=== PATIENT | female | born 1985 | race Hispanic/Latino ===

== ENCOUNTER 2020-12-24 21:06 | Emergency (ER) | payer OTHER ==
[~2020-12-24] VITALS: Ht 165.1 cm; Wt 60.0 kg
--- OUTSIDE RECORDS SUMMARY | 2020-12-24 21:16 | CCD ---
Author Author [facility] Organization [facility] Address Unknown Phone Unavailable Care Team Providers Care Actuary Name Role Phone Carine GOOD MD Unavailable Unavailable Carine GOOD MD Unavailable Unavailable Carine GOOD MD Unavailable Unavailable Carine GOOD MD Unavailable Unavailable Carine GOOD MD Unavailable Unavailable Carine GOOD MD Unavailable Unavailable Carine GOOD MD Unavailable Unavailable Carine GOOD MD Unavailable Unavailable Carine GOOD MD Unavailable Unavailable Carine GOOD MD Unavailable Unavailable Carine GOOD MD Unavailable Unavailable Carine GOOD MD Unavailable Unavailable Carine GOOD MD Unavailable Unavailable Carine GOOD MD Unavailable Unavailable Carine GOOD MD Unavailable Unavailable Carine GOOD MD Unavailable Unavailable Carine GOOD MD Unavailable Unavailable Carine GOOD MD Unavailable Unavailable Carine GOOD MD Unavailable Unavailable Carine GOOD MD Unavailable Unavailable Carine GOOD MD Unavailable Unavailable Carine GOOD MD Unavailable Unavailable Carine GOOD MD Unavailable Unavailable Carine GOOD MD Unavailable Unavailable Feola, T Tahira PA Unavailable Unavailable Feola, T Tahira PA Unavailable Unavailable Feola, T Tahira PA Unavailable Unavailable Feola, T Tahira PA Unavailable Unavailable Feola, T Tahira PA Unavailable Unavailable Feola, T Tahira PA Unavailable Unavailable Feola, T Tahira PA Unavailable Unavailable Feola, T Tahira PA Unavailable Unavailable Feola, T Tahira PA Unavailable Unavailable Feola, T Tahira PA Unavailable Unavailable Feola, T Tahira PA Unavailable Unavailable Feola, T Tahira PA Unavailable Unavailable Feola, T Tahira PA Unavailable Unavailable Feola, T Tahira PA Unavailable Unavailable Feola, T Tahira PA Unavailable Unavailable Feola, T Tahira PA Unavailable Unavailable Feola, T Tahira PA Unavailable Unavailable Feola, T Tahira PA Unavailable Unavailable Feola, T Tahira PA Unavailable Unavailable Feola, T Tahira PA Unavailable Unavailable Feola, T Tahira PA Unavailable Unavailable Feola, T Tahira PA Unavailable Unavailable Feola, T Tahira PA Unavailable Unavailable Feola, T Tahira PA Unavailable Unavailable Feola, T Tahira PA Unavailable Unavailable Feola, T Tahira PA Unavailable Unavailable Feola, T Tahira PA Unavailable Unavailable Feola, T Tahira PA Unavailable Unavailable Feola, T Tahira PA Unavailable Unavailable Feola, T Tahira PA Unavailable Unavailable Feola, T Tahira PA Unavailable Unavailable Feola, T Tahira PA Unavailable Unavailable Feola, T Tahira PA Unavailable Unavailable Feola, T Tahira PA Unavailable Unavailable Feola, T Tahira PA Unavailable Unavailable Feola, T Tahira PA Unavailable Unavailable Feola, T Tahira PA Unavailable Unavailable Feola, T Tahira PA Unavailable Unavailable Feola, T Tahira PA Unavailable Unavailable Feola, T Tahira PA Unavailable Unavailable Feola, T Tahira PA Unavailable Unavailable SANTAMARIA, G EDWARD RPA Unavailable Unavailable SANTAMARIA, G EDWARD RPA Unavailable Unavailable SANTAMARIA, G EDWARD RPA Unavailable Unavailable SANTAMARIA, G EDWARD RPA Unavailable Unavailable SANTAMARIA, G EDWARD RPA Unavailable Unavailable SANTAMARIA, G EDWARD RPA Unavailable Unavailable SANTAMARIA, G EDWARD RPA Unavailable Unavailable SANTAMARIA, G EDWARD RPA Unavailable Unavailable SANTAMARIA, G EDWARD RPA Unavailable Unavailable SANTAMARIA, G EDWARD RPA Unavailable Unavailable SANTAMARIA, G EDWARD RPA Unavailable Unavailable SANTAMARIA, G EDWARD RPA Unavailable Unavailable SANTAMARIA, G EDWARD RPA Unavailable Unavailable SANTAMARIA, G EDWARD RPA Unavailable Unavailable SANTAMARIA, G EDWARD RPA Unavailable Unavailable SANTAMARIA, G EDWARD RPA Unavailable Unavailable SANTAMARIA, G EDWARD RPA Unavailable Unavailable SANTAMARIA, G EDWARD RPA Unavailable Unavailable SANTAMARIA, G EDWARD RPA Unavailable Unavailable SANTAMARIA, G EDWARD RPA Unavailable Unavailable SANTAMARIA, G EDWARD RPA Unavailable Unavailable SANTAMARIA, G EDWARD RPA Unavailable Unavailable SANTAMARIA, G EDWARD RPA Unavailable Unavailable SANTAMARIA, G EDWARD RPA Unavailable Unavailable SANTAMARIA, G EDWARD RPA Unavailable Unavailable SANTAMARIA, G EDWARD RPA Unavailable Unavailable SANTAMARIA, G EDWARD RPA Unavailable Unavailable SANTAMARIA, G EDWARD RPA Unavailable Unavailable SANTAMARIA, G EDWARD RPA Unavailable Unavailable SANTAMARIA, G EDWARD RPA Unavailable Unavailable SANTAMARIA, G EDWARD RPA Unavailable Unavailable SANTAMARIA, G EDWARD RPA Unavailable Unavailable SANTAMARIA, G EDWARD RPA Unavailable Unavailable SANTAMARIA, G EDWARD RPA Unavailable Unavailable SANTAMARIA, G EDWARD RPA Unavailable Unavailable SANTAMARIA, G EDWARD RPA Unavailable Unavailable SANTAMARIA, G EDWARD RPA Unavailable Unavailable Re-disclosure Warning The records that you are about to access may contain information from federally-assisted alcohol or drug abuse programs. If such information is present, then the following federally mandated warning applies: This information has been disclosed to you from records protected by federal confidentiality rules (42 CFR part 2). The federal rules prohibit you from making any further disclosure of this information unless further disclosure is expressly permitted by the written consent of the person to whom it pertains or as otherwise permitted by 42 CFR part 2. A general authorization for the release of medical or other information is NOT sufficient for this purpose. The Federal rules restrict any use of the information to criminally investigate or prosecute any alcohol or drug abuse patient.The records that you are about to access may contain highly sensitive health information, the redisclosure of which is protected by Article 27-F of the [facility] Public Health law. If you continue you may have access to information: Regarding HIV / AIDS; Provided by facilities licensed or operated by the [facility] Office of Mental Health; or Provided by the [facility] Office for People With Developmental Disabilities. If such information is present, then the following [facility] mandated warning applies: This information has been disclosed to you from confidential records which are protected by state law. State law prohibits you from making any further disclosure of this information without the specific written consent of the person to whom it pertains, or as otherwise permitted by law. Any unauthorized further disclosure in violation of state law may result in a fine or [place] [facility] sentence or both. A general authorization for the release of medical or other information is NOT sufficient authorization for further disc losure. Encounters Encounter Providers Location Date Indications Data Source(s ) Outpatient Attender: Tahira RIVERA 021 12:39:21 PM EDT - 10/17/2020 12:48:44 PM EDT [facility] ([facility] ) Outpatient Attender: JOAN SANTAMARIA RPA 10/15 11:49:40 AM EDT - 10/15/2020 12:26:16 PM EDT [facility] Outpatient 10/14/2020 10:54:14 AM EDT [facility] ([facility]) Outpatient Attender: JADIEL GOOD MD 10/10 04:24:40 PM EDT - 10/10/2020 04:51:30 PM EDT [facility] ([facility] ) Outpatient Attender: JOAN SANTAMARIA RPA 10/10 10:54:35 AM EDT - 10/10/2020 12:07:03 PM EDT [facility] ([facility] ) Immunizations Vaccine Date Status Description Data Source(s) COVID-19 VACCINE Pfizer 10/14/2020 12:00:00 AM EDT completed [facility] Vaccine Series Complete: YESThis Data wa s Submitted to [facility]. COVID-19 VACCINE Pfizer 09/22/2020 12:00:00 AM EDT completed [facility] Vaccine Series Complete: NOThis Data was Submitted to [facility]. Medications No Information Insurance Providers Payer name Policy type / Coverage type Policy ID Covered constitution party ID Covered constitution party's relationship to hernandez Policy Hernandez Plan Information [facility] emp [id number] Employee [id number] Managed Care [facility] Community Plan P UNAVAILABLE S UNAVAILABLE [employer] S [id number] S [id number] [id number] Managed Care Community [facility] P UNAVAILABLE S UNAVAILABLE [employer] BCYO S [id number] S [id number] [facility] S [id number] S [id number] [employer] WC P [id number] S [id number] [employer] [id number] SP [id number] OTHER WORKERS COMPENSATION [id number] SP [id number] [employer] [id number] SP [id number] O BLUE [id number] SP [id number] [facility] [id number] SP [id number] Problems, Conditions, and Diagnoses No Information Surgeries/Procedures No Information Results No Information Social History No Information
[2020-12-24] MEDS ORDERED: IBUP200C29 PO (21:22)
[2020-12-25 00:10] VITALS: BP 110/67
[2020-12-25] MEDS ORDERED: NS 1,000 ML IV ONE (01:30)
[2020-12-25] MEDS ORDERED: KETOROLAC 30 MG/ML 1ML VIAL IV ONE (01:30)
[2020-12-25] MEDS ORDERED: ISOVUE-370 76% 100ML VIAL As Ordered ONE (01:34)
[2020-12-25] MEDS: ALBUTEROL 90 MCG/ACT 8GM HFA INHALER INH SCH ×3 (01:45→02:10)
[2020-12-25 02:01] LABS: VENOUS HCO3 23.4 MEQ/L (23.0-27.0); VENOUS O2 SATURATION 47.8 % (60.0-80.0); VENOUS PARTIAL PRESSURE CO2 42.2 mmHg (38.0-50.0); VENOUS PARTIAL PRESSURE O2 23.9 mmHg (30.0-50.0); VENOUS PH 7.362 UNITS (7.330-7.430); VENOUS STANDARD HCO3 21.7 MEQ/L; VENOUS TOTAL CO2 24.7 MEQ/L (24.0-28.0)
[2020-12-25 02:12] LABS: BASO % 0.3 % (0.0-1.0); EOS % 0.1 % (0.0-3.0); HEMATOCRIT 41.5 % (36.0-47.0); HEMOGLOBIN 13.4 g/dl (12.0-15.5); LYMPH % 14.8 % (24.0-44.0); MEAN CORPUSCULAR HEMOGLOBIN 30.3 pg (27.0-33.0); MEAN CORPUSCULAR HGB CONC 32.3 g/dl (32.0-36.5); MEAN CORPUSCULAR VOLUME 93.9 fl (80.0-96.0); MONO # 0.5 10^3/uL (0.0-0.8); MONO % 7.8 % (2.0-8.0); NEUTROPHILS # 5.3 10^3/uL (1.5-8.5); NEUTROPHILS % 76.7 % (36.0-66.0); PLATELET COUNT, AUTOMATED 218 10^3/uL (150-450); RED BLOOD COUNT 4.42 10^6/uL (4.00-5.40)
--- NOTE | 2020-12-25 03:32 | REPVR ---
PROCEDURE INFORMATION: Exam: CTA Chest with Contrast Exam date and time: 12/25/20 (2:22am) Age: 34 years old Clinical indication: SOB. Covid (+). Pleuritic chest pain. TECHNIQUE: Imaging protocol: Computed tomographic angiography of the chest with contrast 3D rendering (Not supervised by radiologist): MIP and/or 3D reconstructed images were created by the technologist. Radiation optimization: All CT scans at this facility use at least one of these dose optimization techniques: automated exposure control; mA and/or kV adjustment per patient size (includes targeted exams where dose is matched to clinical indication); or iterative reconstruction. Contrast material: Iso Contrast volume: 75 ml Contrast route: IV COMPARISON: No relevant prior studies available FINDINGS: Pulmonary arteries: Normal. No pulmonary emboli. Aorta: Unremarkable. No aortic aneurysm. No aortic dissection. Lungs: Unremarkable. No consolidation. No masses. Pleural spaces: Unremarkable. No pneumothorax. No pleural effusions. Heart: Unremarkable. No cardiomegaly. No pericardial effusion. Lymph nodes: Unremarkable. No enlarged lymph nodes. Bones/joints: Unremarkable. No acute fracture. Soft tissues: Unremarkable. Upper abdomen: S/P cholecystectomy. IMPRESSION: No acute findings. No filling defects suspicious for pulmonary emboli are seen. There is no CT evidence of aortic dissection nor leakage. No aortic aneurysm is appreciated. Electronically signed by: Jalyn Mayo On 12/25/2020 03:31:57 AM
--- OUTSIDE RECORDS SUMMARY | 2020-12-25 05:21 | CCD ---
Author Author [facility] Organization [facility] Address Unknown Phone Unavailable Care Team Providers Care Reed Cleaner Name Role Phone Carine GOOD MD Unavailable [...] is protected by Article 27-F of the [facility] Public Health law. If you continue you may have access to information: Regarding HIV / AIDS; Provided by facilities licensed or operated by the [facility] Office of Mental Health; or Provided by the [facility] Office for People With Developmental Disabilities. If such information is present, then the following [facility] mandated warning applies: This information has [...] law may result in a fine or retirement sentence or both. A general authorization for the release of medical or other information is NOT sufficient authorization for further disc losure. Encounters Encounter Providers Location Date Indications Data Source(s ) Outpatient Attender: Tahira RIVERA 021 12:39:21 PM EDT - 10/17/2020 12:48:44 PM EDT [facility] Outpatient Attender: JOAN SANTAMARIA RPA 10/15 11:49:40 AM EDT - 10/15/2020 12:26:16 PM EDT [facility] ([facility] ) Outpatient 10/14/2020 10:54:14 AM EDT [facility] ([facility]) Outpatient Attender: JADIEL GOOD MD 10/10 04:24:40 PM EDT - 10/10/2020 04:51:30 PM EDT [facility] ([facility] ) Outpatient Attender: JOAN SANTAMARIA RPA 10/10 10:54:35 AM EDT - 10/10/2020 12:07:03 PM EDT [facility] ([facility] ) Immunizations Vaccine Date Status Description Data Source(s) COVID-19 VACCINE [employer] 10/14/2020 12:00:00 AM EDT completed [facility] Vaccine Series Complete: YESThis Data wa s Submitted to [facility]. COVID-19 VACCINE Pfizer 09/22/2020 12:00:00 AM EDT completed [facility] Vaccine Series Complete: NOThis Data was Submitted to [facility]. Medications No Information Insurance Providers Payer name Policy type / Coverage type Policy ID Covered green party ID Covered green party's relationship to hernandez Policy Hernandez Plan Information [facility] emp [id number] Employee [id number] [facility] Care [facility] Community Plan P UNAVAILABLE S UNAVAILABLE [employer] S [id number] S [id number] [id number] Managed Care Community [facility] P UNAVAILABLE S UNAVAILABLE [employer] BCYO S [id number] S [id number] [id number] Blue [employer] Blue Shield S [id number] S [id number] [employer] WC P [id number] S [id number] [employer] [id number] SP [id number] OTHER WORKERS COMPENSATION [id number] SP [id number] [employer] [id number] SP [id number] HMO BLUE [id number] SP [id number] [facility] [id number] Problems, Conditions, and Diagnoses No Information Surgeries/Procedures No Information Results No Information Social History No Information
== END 2020-12-25 05:47 | disposition home or self-care (01) ==
LOC: M ED 21:06
DX: U07.1 COVID-19 (principal); R07.9 Chest pain, unspecified; R06.02 Shortness of breath; F17.200 Nicotine dependence, unspecified, uncomplicated
CPT/HCPCS: 71275; 80047; 82803; 84702; 85025; 94640; 96361; 96374; 99284; J1885; Q9967

== ENCOUNTER 2022-02-09 15:02 | Emergency (ER) | payer OTHER ==
[~2022-02-09] VITALS: Ht 165.1 cm; Wt 54.3 kg
[~2022-02-09 15:02] MED LIST: IBUP200C29 PO
[2022-02-09 15:03] VITALS: BP 122/71
[2022-02-10] MEDS ORDERED: CIPR7.5D5 OTIC (13:11)
== END 2022-02-09 19:28 | disposition left against medical advice (07) ==
LOC: M ED 15:02
DX: Z53.21 Procedure and treatment not carried out due to patient leaving prior to being seen by health care provider (principal)

== ENCOUNTER 2022-02-10 08:48 | Emergency (ER) | payer OTHER ==
[~2022-02-10] VITALS: Ht 165.1 cm; Wt 53.4 kg
[2022-02-10 13:00] VITALS: BP 124/73
[2022-02-10] MEDS ORDERED: CIPR7.5D5 OTIC (13:11)
== END 2022-02-10 13:43 | disposition home or self-care (01) ==
LOC: M ED 08:48
DX: H92.01 Otalgia, right ear (principal); H92.21 Otorrhagia, right ear; F17.200 Nicotine dependence, unspecified, uncomplicated

== ENCOUNTER 2022-06-24 14:21 | Emergency (ER) | payer OTHER ==
[~2022-06-24] VITALS: Ht 165.1 cm; Wt 54.7 kg
[~2022-06-24 14:21] MED LIST changes: +CIPR7.5D5 OTIC
[2022-06-24 14:22] VITALS: BP 122/77
[2022-06-24] MEDS ORDERED: MEDR150I12 (14:27)
[2022-06-24] MEDS ORDERED: AMOX500C PO (16:59)
[2022-06-24] MEDS ORDERED: IBUP-1022 PO (16:59)
== END 2022-06-24 17:06 | disposition home or self-care (01) ==
LOC: M ED 14:21
DX: K02.9 Dental caries, unspecified (principal); M26.621 Arthralgia of right temporomandibular joint; F17.200 Nicotine dependence, unspecified, uncomplicated

== ENCOUNTER → 2023-03-28 | Outpatient (REF) | payer OTHER ==
[~2023-03-28] MED LIST changes: +AMOX500C PO; +IBUP-1022 PO; +MEDR150I12
[2023-03-28 17:30] LABS: BASO % 0.3 % (0.0-1.0); EOS # 0.1 10^3/uL (0.0-0.5); HEMATOCRIT 40.9 % (36.0-47.0); HEMOGLOBIN 13.7 g/dl (12.0-15.5); LYMPH % 29.3 % (24.0-44.0); MEAN CORPUSCULAR HEMOGLOBIN 30.7 pg (27.0-33.0); MEAN CORPUSCULAR HGB CONC 33.5 g/dl (32.0-36.5); MEAN CORPUSCULAR VOLUME 91.7 fl (80.0-96.0); MONO # 0.5 10^3/uL (0.0-0.8); MONO % 7.8 % (2.0-8.0); NEUTROPHILS # 4.2 10^3/uL (1.5-8.5); NEUTROPHILS % 60.3 % (36.0-66.0); PLATELET COUNT, AUTOMATED 268 10^3/uL (150-450); RED BLOOD COUNT 4.46 10^6/uL (4.00-5.40); WHITE BLOOD COUNT 6.9 10^3/uL (4.0-10.0)
[2023-03-28 17:42] LABS: CHOLESTEROL LEVEL 139 MG/DL (<200); HDL CHOLESTEROL 33.9 MG/DL (>40); LDL CHOLESTEROL 90.1 MG/DL (<100); NON-HDL-C 105.1 MG/DL; TRIGLYCERIDES LEVEL 75 MG/DL (<150)
[2023-03-28 17:43] LABS: THYROID STIMULATING HORMONE 1.488 uIU/ML (0.55-4.78); TOTAL 25(OH) VITAMIN D 9.1 NG/ML (20.0-100.0)
== END ==
LOC: M LAB REF 16:33
PROVIDERS: ATTEND Nurse Practitioner Family
DX: Z11.9 Encounter for screening for infectious and parasitic diseases, unspecified (principal); E55.9 Vitamin D deficiency, unspecified; R53.83 Other fatigue; Z13.6 Encounter for screening for cardiovascular disorders